=== PATIENT | female | born 1985 | race Caucasian/White ===

== ENCOUNTER 2022-04-22 13:25 | Emergency (ER) | payer OTHER, SELFPAY ==
--- NOTE | ~2022-04-22 | XR_ITS ---
EXAMINATION: XR CHEST CLINICAL INFORMATION: Shortness of breath COMPARISON: None TECHNIQUE: Frontal view of the chest was obtained. FINDINGS: No significant abnormality is noted involving the heart, lungs, mediastinum, bony thorax or soft tissues. Surgical clips in the left lower neck. XR/XR chest 1V IMPRESSION: No evidence for acute disease in the chest.
--- NOTE | ~2022-04-22 | CT_ITS ---
EXAMINATION: CT HEAD WITHOUT CONTRAST CLINICAL INFORMATION: Headache and dizziness COMPARISON: None TECHNIQUE: Imaging was performed from the skull base to vertex without intravenous administration of contrast. This CT examination was performed using dose optimization techniques as appropriate, variously including the following: *Automated exposure control *Adjustment of mA and/or kV according to patient size (this includes techniques or standardized protocols for targeted exams where dose is matched to indication/reason for exam; i.e. extremities or head) *Use of iterative reconstruction technique Total exam dose length product: 709 mGy-cm FINDINGS: No intra or extra-axial fluid collection, hemorrhage, or mass. No ventriculomegaly. No midline shift or herniation. Basal cisterns are patent. Chicas-white matter differentiation is maintained. No territorial encephalomalacia. No significant volume loss. There is no abnormal attenuation within the brain parenchyma. No calvarial fracture or soft tissue abnormality. Small subcentimeter left frontal dural calcification versus osteoma projecting from the inner table skull noted incidentally. Small retention cysts in the left frontal sinus and right maxillary antrum. Mastoid air cells normally aerated. CT/CT head/brain wo IV con IMPRESSION: No acute intracranial pathology.
--- NOTE | 2022-04-22 15:21 | ED_ITS ---
HPI - General Adult General Chief complaint: General Medical <WEN Salcido - Last Filed: 04/22/22 15:26> Stated complaint: Migraine/Vomiting/Back pain <WEN Salcido - Last Filed: 04/22/22 15:26> Time Seen by Provider: 04/22/22 20:47 <WEN Salcido - Last Filed: 04/22/22 15:26> Source: patient <Jesse Marrufo MD - Last Filed: 04/23/22 00:00> Mode of arrival: ambulatory <Jesse Marrufo MD - Last Filed: 04/23/22 00:00> Limitations: no limitations <Jesse Marrufo MD - Last Filed: 04/23/22 00:00> History of Present Illness HPI narrative: Patient history of migraine headaches ran out of her Topamax and Imitrex been having headache for last 2-3 days also since yesterday patient having nasal congestion body aches burning dry cough. No other family member sick patient has not received the flu shot this year <Jesse Marrufo MD - Last Filed: 04/23/22 00:00> Related Data Home medications: Previous Rx's Medication Instructions Recorded benzonatate 200 mg capsule 200 mg PO TID PRN cough #30 caps 04/22/22 oylmwdudgh-bcrafsjjywpnh-sgardoju 1 cap PO Q6H PRN headache #20 caps 04/22/22 50 mg-300 mg-40 mg capsule (Fioricet) ibuprofen 600 mg tablet 600 mg PO Q6H PRN fever or pain 04/22/22 #30 tabs oseltamivir 75 mg capsule (Tamiflu) 75 mg PO BID 5 days #10 caps 04/22/22 sumatriptan succinate 50 mg tablet 50 mg PO Q2H PRN migraine headache 04/22/22 (Imitrex) #10 tabs <WEN Salcido - Last Filed: 04/22/22 15:26> Allergies/adverse reactions: Allergies Allergy/AdvReac Type Severity Reaction Status Date / Time sulfamethoxazole Allergy Unknown UNKNOWN Verified 04/22/22 15:27 [From Bactrim] trimethoprim [From Bactrim] Allergy Unknown UNKNOWN Verified 04/22/22 15:27 <WEN Salcido - Last Filed: 04/22/22 15:26> Review of Systems Review of Systems: Yes all other systems are reviewed and are negative <Jesse Marrufo MD - Last Filed: 04/23/22 00:00> [facility] Social History Social History: Social History Advance Directives: No Advance Directives Information Provided: No <WEN Salcido - Last Filed: 04/22/22 15:26> Physical Exam ED Vital Signs: Vital Signs - 24 hr 04/22/22 15:22 04/22/22 21:11 Temperature 98.8 F 98.6 F Pulse Rate 100 98 Respiratory Rate 20 20 Blood Pressure 112/88 115/78 Pulse Oximetry 96 100 Oxygen Delivery Method Room Air Room Air BMI result Body Mass Index 27.8 <WEN Salcido - Last Filed: 04/22/22 15:26> Vital Signs - 24 hr 04/22/22 15:22 04/22/22 21:11 Temperature 98.8 F 98.6 F Pulse Rate 100 98 Respiratory Rate 20 20 Blood Pressure 112/88 115/78 Pulse Oximetry 96 100 Oxygen Delivery Method Room Air Room Air BMI result Body Mass Index 27.8 <Jesse Marrufo MD - Last Filed: 04/23/22 00:00> Appearance: Alert. Oriented X3. No acute distress. Eyes: No pallor or icterus ENT: Pharynx normal. Oral Mucosa moist clear rhinorrhea Neck: Normal inspection. Neck supple. CVS: Normal heart rate and rhythm. Pulses normal. Respiratory: No respiratory distress. Equal air entry bilateral, no wheezing/rales/rhonchi Abdomen: Soft and nontender. Bowel sounds are present, Skin: Skin warm and dry. Normal skin color. Normal skin turgor. Extremities: No lower extremity edema. No calf tenderness Neuro: Oriented X 3. No motor deficit. <Jesse Marrufo MD - Last Filed: 04/23/22 00:00> Course Course Course Narrative: RME: [birth year][age] year old female hx asthma, migranes, throid issues presents w/ migranes, dizziness, cough, fatigue, malise, chest pain and shortness of breath X2 days. Went to yesterday yesterday had a CT of head done and PCR test. Patient doesn't know results of tests left ama. Was covid + 2 weeks ago. PE benign. 97% on RA w/ work of breathing Plan- labs, imaging <WEN Salcido - Last Filed: 04/22/22 15:26> Medications Administered Discontinued Medications Generic Name Dose Route Start Last Admin Trade Name Freq PRN Reason Stop Dose Admin Acetaminophen/Butalbital/Caffeine 1 tab 04/22/22 21:00 04/22/22 21:59 Butalb/Acetamin/Caff 50/325/40 Tablet PO 04/22/22 21:01 1 tab ONCE ONE Administration Guaifenesin/Codeine Phosphate 10 ml 04/22/22 21:00 04/22/22 21:57 Guaifen/Codeine Sf 200/20/10ml 10 Ml Liquid PO 04/22/22 21:01 10 ml ONCE ONE Administration Ondansetron HCl 4 mg 04/22/22 21:00 04/22/22 21:59 Ondansetron Odt 4 Mg Tab.Rapdis TRANSLINGU 04/22/22 21:01 4 mg ONCE ONE Administration Oseltamivir Phosphate 75 mg 04/22/22 21:00 04/22/22 21:58 Oseltamivir Phosphate 75 Mg Capsule PO 04/22/22 21:01 75 mg ONCE ONE Administration Sumatriptan Succinate 6 mg 04/22/22 21:00 04/22/22 22:00 Sumatriptan Succinate 6 Mg/0.5 Ml Vial SUBCUT 04/22/22 21:01 6 mg ONCE ONE Administration <WNE Salcido - Last Filed: 04/22/22 15:26> Medications Administered Discontinued Medications Generic Name Dose Route Start Last Admin Trade Name Freq PRN Reason Stop Dose Admin Acetaminophen/Butalbital/Caffeine 1 tab 04/22/22 21:00 04/22/22 21:59 Butalb/Acetamin/Caff 50/325/40 Tablet PO 04/22/22 21:01 1 tab ONCE ONE Administration Guaifenesin/Codeine Phosphate 10 ml 04/22/22 21:00 04/22/22 21:57 Guaifen/Codeine Sf 200/20/10ml 10 Ml Liquid PO 04/22/22 21:01 10 ml ONCE ONE Administration Ondansetron HCl 4 mg 04/22/22 21:00 04/22/22 21:59 Ondansetron Odt 4 Mg Tab.Rapdis TRANSLINGU 04/22/22 21:01 4 mg ONCE ONE Administration Oseltamivir Phosphate 75 mg 04/22/22 21:00 04/22/22 21:58 Oseltamivir Phosphate 75 Mg Capsule PO 04/22/22 21:01 75 mg ONCE ONE Administration Sumatriptan Succinate 6 mg 04/22/22 21:00 04/22/22 22:00 Sumatriptan Succinate 6 Mg/0.5 Ml Vial SUBCUT 04/22/22 21:01 6 mg ONCE ONE Administration <Jesse Marrufo MD - Last Filed: 04/23/22 00:00> Medical Decision Making Medical Decision Making [facility] Narrative: Patient with influenza a, migraine headache workup is negative FRANCESCA in the triage ordered the CT scan of the head which was negative patient already had another CT scan done at [facility] last night also <Jesse Marrufo MD - Last Filed: 04/23/22 00:00> Lab Data [facility] Lab Attestation statement: I reviewed the patient's lab results. <Jesse Marrufo MD - Last Filed: 04/23/22 00:00> Result Diagrams: : 04/22/22 16:42 04/22/22 16:42 <WEN Salcido - Last Filed: 04/22/22 15:26> Labs: Lab Results 04/22/22 04/22/22 04/22/22 Range/Units 16:42 16:42 16:42 WBC 5.4 (4.8-10.8) X10*3/uL RBC 4.31 (4.20-5.50) X10*6/uL Hgb 12.1 (12.0-16.0) g/dl Hct 36.7 L (37.0-47.0) % MCV 85.2 (80.0-98.0) fL MCH 28.1 (27.0-33.0) pg MCHC 33.0 (31.0-35.0) g/dl RDW 13.2 (11.0-16.0) % Plt Count 182 (160-400) X10*3/uL MPV 11.5 (9.4-12.3) fL Immature Gran % (Auto) 0.4 (0.0-0.4) % Neut % (Auto) 81.0 H (45-73) % Lymph % (Auto) 7.4 L (20-40) % Guthrie % (Auto) 10.4 (2-11) % Eos % (Auto) 0.4 (0-4) % Baso % (Auto) 0.4 (0-2) % Lymph # (Auto) 0.4 L (1.2-4.9) X10*3/uL Guthrie # (Auto) 0.6 (0.1-1.2) X10*3/uL Eos # (Auto) 0.0 (0.0-0.4) X10*3/uL Baso # (Auto) 0.0 (0.0-0.2) X10*3/uL Abs Immat Gran (auto) 0.02 (0.00-0.03) X10*3/uL Absolute Neuts (auto) 4.4 (2.0-8.3) x10*3/uL Absolute Nucleated RBC 0.000 (0.0-0.012) X10*3/uL Nucleated RBC % (auto) 0.0 (0.0-0.2) /100WBC D-Dimer High Sensitivty NG/ML Sodium 137 (135-145) mmol/L Potassium 3.8 (3.3-5.1) mmol/L Chloride 108 (96-108) mmol/L Carbon Dioxide 22 (22-29) mmol/L Anion Gap 11 L (12-20) BUN 6 L (9-16) mg/dL Creatinine 0.70 (0.5-1.4) mg/dL Estim Creat Clear Calc 110.2 Estimated GFR > 60 Random Glucose 96 (60-115) mg/dL Calcium 8.8 (8.4-10.2) mg/dL Magnesium 1.8 (1.6-2.6) mg/dL Total Bilirubin 0.4 (0.0-1.0) mg/dL AST 17 (5-31) U/L ALT 9 (0-31) U/L Alkaline Phosphatase 62 (39-117) U/L Troponin I High Sens (<3.5-17.0) ng/L Total Protein 6.8 (6.5-8.0) g/dL Albumin 4.3 (3.5-5.0) g/dL Influenza Type A (PCR) POSITIVE A (Negative) Influenza Type B (PCR) NEGATIVE (Negative) RSV RNA Qual (PCR) NEGATIVE (Negative) SARS-CoV-2 RNA (RT-PCR) NEGATIVE (Negative) 04/22/22 04/22/22 Range/Units 16:42 16:42 WBC (4.8-10.8) X10*3/uL RBC (4.20-5.50) X10*6/uL Hgb (12.0-16.0) g/dl Hct (37.0-47.0) % MCV (80.0-98.0) fL MCH (27.0-33.0) pg MCHC (31.0-35.0) g/dl RDW (11.0-16.0) % Plt Count (160-400) X10*3/uL MPV (9.4-12.3) fL Immature Gran % (Auto) (0.0-0.4) % Neut % (Auto) (45-73) % Lymph % (Auto) (20-40) % Guthrie % (Auto) (2-11) % Eos % (Auto) (0-4) % Baso % (Auto) (0-2) % Lymph # (Auto) (1.2-4.9) X10*3/uL Guthrie # (Auto) (0.1-1.2) X10*3/uL Eos # (Auto) (0.0-0.4) X10*3/uL Baso # (Auto) (0.0-0.2) X10*3/uL Abs Immat Gran (auto) (0.00-0.03) X10*3/uL Absolute Neuts (auto) (2.0-8.3) x10*3/uL Absolute Nucleated RBC (0.0-0.012) X10*3/uL Nucleated RBC % (auto) (0.0-0.2) /100WBC D-Dimer High Sensitivty < 150 NG/ML Sodium (135-145) mmol/L Potassium (3.3-5.1) mmol/L Chloride (96-108) mmol/L Carbon Dioxide (22-29) mmol/L Anion Gap (12-20) BUN (9-16) mg/dL Creatinine (0.5-1.4) mg/dL Estim Creat Clear Calc Estimated GFR Random Glucose (60-115) mg/dL Calcium (8.4-10.2) mg/dL Magnesium (1.6-2.6) mg/dL Total Bilirubin (0.0-1.0) mg/dL AST (5-31) U/L ALT (0-31) U/L Alkaline Phosphatase (39-117) U/L Troponin I High Sens 3.8 (<3.5-17.0) ng/L Total Protein (6.5-8.0) g/dL Albumin (3.5-5.0) g/dL Influenza Type A (PCR) (Negative) Influenza Type B (PCR) (Negative) RSV RNA Qual (PCR) (Negative) SARS-CoV-2 RNA (RT-PCR) (Negative) <WEN Salcido - Last Filed: 04/22/22 15:26> Lab Results 04/22/22 04/22/22 04/22/22 Range/Units 16:42 16:42 16:42 WBC 5.4 (4.8-10.8) X10*3/uL RBC 4.31 (4.20-5.50) X10*6/uL Hgb 12.1 (12.0-16.0) g/dl Hct 36.7 L (37.0-47.0) % MCV 85.2 (80.0-98.0) fL MCH 28.1 (27.0-33.0) pg MCHC 33.0 (31.0-35.0) g/dl RDW 13.2 (11.0-16.0) % Plt Count 182 (160-400) X10*3/uL MPV 11.5 (9.4-12.3) fL Immature Gran % (Auto) 0.4 (0.0-0.4) % Neut % (Auto) 81.0 H (45-73) % Lymph % (Auto) 7.4 L (20-40) % Guthrie % (Auto) 10.4 (2-11) % Eos % (Auto) 0.4 (0-4) % Baso % (Auto) 0.4 (0-2) % Lymph # (Auto) 0.4 L (1.2-4.9) X10*3/uL Guthrie # (Auto) 0.6 (0.1-1.2) X10*3/uL Eos # (Auto) 0.0 (0.0-0.4) X10*3/uL Baso # (Auto) 0.0 (0.0-0.2) X10*3/uL Abs Immat Gran (auto) 0.02 (0.00-0.03) X10*3/uL Absolute Neuts (auto) 4.4 (2.0-8.3) x10*3/uL Absolute Nucleated RBC 0.000 (0.0-0.012) X10*3/uL Nucleated RBC % (auto) 0.0 (0.0-0.2) /100WBC D-Dimer High Sensitivty NG/ML Sodium 137 (135-145) mmol/L Potassium 3.8 (3.3-5.1) mmol/L Chloride 108 (96-108) mmol/L Carbon Dioxide 22 (22-29) mmol/L Anion Gap 11 L (12-20) BUN 6 L (9-16) mg/dL Creatinine 0.70 (0.5-1.4) mg/dL Estim Creat Clear Calc 110.2 Estimated GFR > 60 Random Glucose 96 (60-115) mg/dL Calcium 8.8 (8.4-10.2) mg/dL Magnesium 1.8 (1.6-2.6) mg/dL Total Bilirubin 0.4 (0.0-1.0) mg/dL AST 17 (5-31) U/L ALT 9 (0-31) U/L Alkaline Phosphatase 62 (39-117) U/L Troponin I High Sens (<3.5-17.0) ng/L Total Protein 6.8 (6.5-8.0) g/dL Albumin 4.3 (3.5-5.0) g/dL Influenza Type A (PCR) POSITIVE A (Negative) Influenza Type B (PCR) NEGATIVE (Negative) RSV RNA Qual (PCR) NEGATIVE (Negative) SARS-CoV-2 RNA (RT-PCR) NEGATIVE (Negative) 04/22/22 04/22/22 Range/Units 16:42 16:42 WBC (4.8-10.8) X10*3/uL RBC (4.20-5.50) X10*6/uL Hgb (12.0-16.0) g/dl Hct (37.0-47.0) % MCV (80.0-98.0) fL MCH (27.0-33.0) pg MCHC (31.0-35.0) g/dl RDW (11.0-16.0) % Plt Count (160-400) X10*3/uL MPV (9.4-12.3) fL Immature Gran % (Auto) (0.0-0.4) % Neut % (Auto) (45-73) % Lymph % (Auto) (20-40) % Guthrie % (Auto) (2-11) % Eos % (Auto) (0-4) % Baso % (Auto) (0-2) % Lymph # (Auto) (1.2-4.9) X10*3/uL Guthrie # (Auto) (0.1-1.2) X10*3/uL Eos # (Auto) (0.0-0.4) X10*3/uL Baso # (Auto) (0.0-0.2) X10*3/uL Abs Immat Gran (auto) (0.00-0.03) X10*3/uL Absolute Neuts (auto) (2.0-8.3) x10*3/uL Absolute Nucleated RBC (0.0-0.012) X10*3/uL Nucleated RBC % (auto) (0.0-0.2) /100WBC D-Dimer High Sensitivty < 150 NG/ML Sodium (135-145) mmol/L Potassium (3.3-5.1) mmol/L Chloride (96-108) mmol/L Carbon Dioxide (22-29) mmol/L Anion Gap (12-20) BUN (9-16) mg/dL Creatinine (0.5-1.4) mg/dL Estim Creat Clear Calc Estimated GFR Random Glucose (60-115) mg/dL Calcium (8.4-10.2) mg/dL Magnesium (1.6-2.6) mg/dL Total Bilirubin (0.0-1.0) mg/dL AST (5-31) U/L ALT (0-31) U/L Alkaline Phosphatase (39-117) U/L Troponin I High Sens 3.8 (<3.5-17.0) ng/L Total Protein (6.5-8.0) g/dL Albumin (3.5-5.0) g/dL Influenza Type A (PCR) (Negative) Influenza Type B (PCR) (Negative) RSV RNA Qual (PCR) (Negative) SARS-CoV-2 RNA (RT-PCR) (Negative) <Jesse Marrufo MD - Last Filed: 04/23/22 00:00> Discharge Plan Discharge Clinical Impression: Influenza A, Migraine <WEN Salcido - Last Filed: 04/22/22 15:26> Patient Disposition: Home, Self-Care <WEN Salcido - Last Filed: 04/22/22 15:26> Instructions: Migraine Headache (ED), Influenza (ED) <WEN Salcido - Last Filed: 04/22/22 15:26> Additional Instructions: Rest at home, drink plenty of fluids Social distancing as advised Cough drops as prescribed Take medication for migraine as prescribed <WEN Salcido - Last Filed: 04/22/22 15:26> Prescriptions: New oseltamivir [Tamiflu] 75 mg capsule 75 mg PO BID 5 Days Qty: 10 0RF sumatriptan succinate [Imitrex] 50 mg tablet 50 mg PO Q2H PRN (Reason: migraine headache) Qty: 10 0RF Rx Instructions: do not exceed 2 doses per 24 hrs [id number] [Fioricet] 50-300-40 mg capsule 1 cap PO Q6H PRN (Reason: headache) Qty: 20 0RF benzonatate 200 mg capsule 200 mg PO TID PRN (Reason: cough) Qty: 30 0RF ibuprofen 600 mg tablet 600 mg PO Q6H PRN (Reason: fever or pain) Qty: 30 0RF <WEN Salcido - Last Filed: 04/22/22 15:26> Stand Alone Forms: Work/School Release <WEN Salcido - Last Filed: 04/22/22 15:26> Interventions: ED Discharge Assessment Last Done: 04/22/22 23:09 <WEN Salcido - Last Filed: 04/22/22 15:26> Discharge Date/Time: 04/22/22 23:09 <WEN Salcido - Last Filed: 04/22/22 15:26>
[2022-04-22 15:22] VITALS: BP 112/88; PULSE 100; RESP 20; TEMP 37.1; O2SAT 96; BMI 27.8
[2022-04-22 16:48] LABS: MANUAL DIFF FLAG NO
[2022-04-22 16:55] LABS: Basophils Percent Auto 0.4 % (0-2); Eosinophils Percent Auto 0.4 % (0-4); Hematocrit 36.7 % (37.0-47.0); Hemoglobin 12.1 g/dl (12.0-16.0); Imm Gran Abs Auto 0.02 X10*3/uL (0.00-0.03); Imm Gran Pct Auto 0.4 % (0.0-0.4); Lymphocytes Absolute Auto 0.4 X10*3/uL (1.2-4.9); Lymphocytes Percent Auto 7.4 % (20-40); Mean Corpuscular Hemoglobin 28.1 pg (27.0-33.0); Mean Corpuscular Volume 85.2 fL (80.0-98.0); Mean Platelet Volume 11.5 fL (9.4-12.3); Monocytes Absolute Auto 0.6 X10*3/uL (0.1-1.2); Monocytes Percent Auto 10.4 % (2-11); Neutrophils Absolute Auto 4.4 x10*3/uL (2.0-8.3); Platelet Count 182 X10*3/uL (160-400); Red Blood Count 4.31 X10*6/uL (4.20-5.50); Red Cell Distribution Width 13.2 % (11.0-16.0); White Blood Count 5.4 X10*3/uL (4.8-10.8)
[2022-04-22 17:00] LABS: D Dimer High Sensitivity < 150 NG/ML
[2022-04-22 17:11] LABS: Alanine Aminotransferase 9 U/L (0-31); Albumin Level 4.3 g/dL (3.5-5.0); Alkaline Phosphatase 62 U/L (39-117); Anion Gap 11 (12-20); Aspartate Amino Transferase 17 U/L (5-31); Bilirubin Total 0.4 mg/dL (0.0-1.0); Blood Urea Nitrogen 6 mg/dL (9-16); Calcium 8.8 mg/dL (8.4-10.2); Carbon Dioxide 22 mmol/L (22-29); Chloride 108 mmol/L (96-108); Creatinine Clr Calc Pharmacy 110.2; Estimated Glomerular Filt Rate > 60; Glucose Random 96 mg/dL (60-115); Magnesium 1.8 mg/dL (1.6-2.6); Potassium 3.8 mmol/L (3.3-5.1); Sodium 137 mmol/L (135-145); Total Protein 6.8 g/dL (6.5-8.0)
[2022-04-22 17:18] LABS: Troponin-I High Sensitivity 3.8 ng/L (<3.5-17.0)
[2022-04-22 17:32] LABS: Influenza A PCR POSITIVE (Negative); Influenza B PCR NEGATIVE (Negative); Resp Syncy Virus RNA Qual PCR NEGATIVE (Negative); SARS COV2 PCR INHOUSE NEGATIVE (Negative)
[2022-04-22 21:11] VITALS: BP 115/78; PULSE 98; RESP 20; TEMP 37; O2SAT 100
[2022-04-22] MEDS: guaiFEN/Codeine SF 200/20/10ML 10 ML LIQUID PO (21:57)
[2022-04-22] MEDS: Oseltamivir Phosphate 75 MG CAPSULE PO (21:58)
[2022-04-22] MEDS: Butalb/Acetamin/Caff 50/325/40 TABLET 1 TAB PO (21:59)
[2022-04-22] MEDS: Ondansetron ODT 4 MG TAB.RAPDIS TRANSLINGU (21:59)
[2022-04-22] MEDS: SUMAtriptan succinate 6 MG/0.5 ML VIAL SUBCUT (22:00)
== END 2022-04-22 23:09 | disposition home or self-care (01) ==
PROVIDERS: Physician Assistant; Emergency Provider Internal Medicine
DX: J10.1 Influenza due to other identified influenza virus with other respiratory manifestations (principal); G43.909 Migraine, unspecified, not intractable, without status migrainosus; R05.9 Cough, unspecified; R42 Dizziness and giddiness; M54.50 Low back pain, unspecified; Z20.822 Contact with and (suspected) exposure to COVID-19; Z79.899 Other long term (current) drug therapy
CPT/HCPCS: 0241U; 36415; 70450; 71045; 80053; 83735; 84484; 85025; 85379; 96372; 99283; 99284; J3030

== ENCOUNTER 2023-06-03 10:23 | Emergency (ER) | payer OTHER, SELFPAY ==
--- NOTE | ~2023-06-03 | CT_ITS ---
EXAMINATION: CT HEAD WITHOUT CONTRAST CLINICAL INFORMATION: Sharp head pains. COMPARISON: Head CT dated 04/22/2022. TECHNIQUE: Contiguous axial imaging was performed from the skullbase to vertex without intravenous administration of contrast. This CT examination was performed using dose optimization techniques as appropriate, variously including the following: *Automated exposure control *Adjustment of mA and/or kV according to patient size (this includes techniques or standardized protocols for targeted exams where dose is matched to indication/reason for exam; i.e. extremities or head) *Use of iterative reconstruction technique DLP: 657 mGy-cm. FINDINGS: There is no evidence of acute intracranial hemorrhage or territorial infarction. No abnormal mass effect or midline shift is seen. No extra-axial fluid collections are identified. There is what is suspected to represent a stable, small 1 cm osteoma along the inner cortical table of the anterior left frontal bone. The ventricles are normal in size. There is no abnormal attenuation within the brain parenchyma. The osseous structures and soft tissues are normal. The mastoid air cells and visualized portions of the paranasal sinuses are well aerated. CT/CT head/brain wo IV con IMPRESSION: No acute intracranial pathology. 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
[2023-06-03 11:24] VITALS: BP 135/77; PULSE 62; RESP 18; TEMP 36.4; O2SAT 100; BMI 32.2
--- NOTE | 2023-06-03 11:32 | ED.HA ---
HPI - Headache General Chief Complaint: Headache Stated Complaint: Headaches, abnormal CT scan - sent by PCP Time Seen by Provider: 06/03/23 16:38 Source: patient Mode of arrival: ambulatory Limitations: no limitations History of Present Illness HPI Narrative: 37 year old female presents to the ED today for evaluation of headaches, nausea and vomiting x2 weeks. Headaches located to left side of head. Sharp and stabbing in character. Endorses staticy vision. These episodes last longer than 15 minutes. Denies recent trauma or injury to the head. 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 Is supposed to schedule MRI soon. Reports calling her PCP this morning who advised her to come in for evaluation. States she used to follow with a neurologist and was on topiramate, Fioricet, sumatriptan however she stopped following up and has not seen a neurologist since. States her migraines have been under control until the last few weeks. Has not been taking anything for pain. Denies fever, chills, neck pain, difficulty ambulating, ear pain, eye pain, photophobia, chest pain, shortness of breath. Related Data Previous Rx's Medication Instructions Recorded benzonatate 200 mg capsule 200 mg PO TID PRN cough #30 caps 04/22/22 mftgaankjt-yhhlvgqnpkbje-ifgtolxi 1 cap PO Q6H PRN headache #20 caps 04/22/22 50 mg-300 mg-40 mg capsule (Fioricet) ibuprofen 600 mg tablet 600 mg PO Q6H PRN fever or pain 04/22/22 #30 tabs oseltamivir 75 mg capsule (Tamiflu) 75 mg PO BID 5 days #10 caps 04/22/22 sumatriptan succinate 50 mg tablet 50 mg PO Q2H PRN migraine headache 04/22/22 (Imitrex) #10 tabs ifzenqczkf-pysbqdxnmtbse-nhqimnmy 1 cap PO Q8H PRN pain (scale score 06/03/23 50 mg-300 mg-40 mg capsule 4-6) #10 caps (Fioricet) ondansetron 4 mg disintegrating 4 mg PO DAILY PRN nausea and 06/03/23 tablet vomiting 5 days #10 tabs Allergies Allergy/AdvReac Type Severity Reaction Status Date / Time sulfamethoxazole Allergy Unknown UNKNOWN Verified 06/03/23 11:23 [From Bactrim] trimethoprim [From Bactrim] Allergy Unknown UNKNOWN Verified 06/03/23 11:23 Review of Systems Review of Systems: Constitutional: No fever, chills, fatigue, night sweats, weight changes ENT/Mouth: No ear pain, hearing loss, nasal congestion, sinus pain, rhinorrhea, sore throat Eyes: No eye pain, swelling, redness, +vision changes, No discharge Cardio: No chest pain, palpitations, SAWYER, orthopnea, peripheral edema Pulm: No SOB, cough, sputum, wheezing, dyspnea, hemoptysis GI: +nausea, +vomiting, No hematemesis, abdominal pain, diarrhea, constipation, hematochezia, melena : No irregular bleeding, dysuria, frequency, urgency, hesitancy, hematuria, flank pain, urinary flow changes, urinary incontinence or retention MSK: No back pain, neck pain, joint pain, myalgias Skin: No lesions, rashes Neuro: No weakness, numbness, paresthesias, LOC, dizziness, +headache All other systems reviewed and are negative. [facility] Past Medical History Attestation statement: The following information was validated with the patient. Source: old records reviewed and nursing notes reviewed Social History Social History Advance Directives: No Advance Directives Information Provided: No Physical Exam Vital Signs: Vital Signs: Last Vital Signs Temp 97.6 F 06/03/23 11:24 Pulse 62 06/03/23 11:24 Resp 18 06/03/23 11:24 BP 135/77 06/03/23 11:24 Pulse Ox 100 06/03/23 11:24 O2 Del Method Room Air 06/03/23 11:24 BMI result Body Mass Index 32.2 Vital signs stable Const: General: cooperative, healthy appearing, comfortable, no acute distress, alert and awake Orientation/consciousness: patient oriented x3 Limitations: no limitations HEENT: Head: Yes normal to inspection, Yes normocephalic and Yes atraumatic Eyes: General: appearance normal, both eyes and all related structures Conjunctivae: conjunctivae normal Sclerae: sclerae normal Pupils: Equal, round and reactive pupils present EOM: EOMs intact bilaterally Neck: Neck: Yes normal visual inspection, Yes full ROM, Yes no lymphadenopathy and Yes no meningeal signs Resp: Effort & Inspection: normal respiratory effort Auscultation: clear to auscultation bilaterally Cardio: Rate: regular rate Rhythm: regular rhythm Skin: General skin exam: no rashes or lesions noted Neuro: Other: Strength 5/5 intact throughout.?Sensation intact to light touch.? Neurovascular intact. General: patient oriented x3, gait normal, moves all extremities, no meningeal signs and no focal motor deficits Cranial nerves: Yes Equal, round and reactive pupils present and Yes Nystagmus not present Cognition (Neuro): normal cognition Gait exam (Neuro): Normal gait present Motor exam (neuro): 5/5 motor strength present throughout and Pronator motor function not present Coordination: fpymsw-sk-pskw test normal, leuz-yw-qtmk test normal and Normal rapid alternating movements of the distal upper extremity present (Neuro) Pupils: Normal pupillary reactivity/response: bilateral Extrem: General: Yes normal to inspection and Yes full ROM Course Course Course Narrative: 1635-- CBC without leukocytosis or left shift. No anemia. H&H stable. Chemistry without acute electrolyte abnormality requiring intervention. Sed rate WNL. Slight elevation in CRP to 0.70. CT is negative for acute intracranial pathology. 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 I have discussed all of these results with patient. She is aware of this osteoma and is currently following with PCP for this. I suspect patient is having complex migraines. Will send Fioricet to pharmacy as she states this has worked for her in the past. Will send Zofran to pharmacy for nausea. Advised her to call her PCP tomorrow and schedule follow-up MRI. Advised her to reach out to neurologist for appointment. Patient has remained stable throughout ED visit today. Discussed worrisome signs and symptoms of when to return to the ED. All questions answered at this time. Patient is agreeable with disposition and stable for discharge. Medical Decision Making Medical Decision Making MDM Narrative: 37 year old female presents to the ED today for evaluation of headaches, nausea and vomiting x2 weeks. Vital signs stable. Normotensive. Afebrile. Nontoxic appearing and in no acute distress. Exam nonfocal. Cerebellum intact. Neurovascularly intact. Ambulating with steady gait. NIH stroke scale 0. Concern for headache, migraine, complex migraine, cluster headache, dehydration, anemia, electrolyte abnormality. Unlikely meningitis, ICH, intracranial mass, CVA/TIA, cerebellar stroke, dissection. Plan for labs, CT head/brain, re-evaluation. Differential Diagnosis Differential Diagnoses: The differential diagnosis associated with the presentation includes Admission/Observation Not indicated Lab Data MDM Lab Attestation statement: I reviewed the patient's lab results. as above. 06/03/23 12:22 06/03/23 12:22 Labs: Lab Results 06/03/23 Range/Units 12:22 WBC 6.3 (4.8-10.8) X10*3/uL RBC 5.04 (4.20-5.50) X10*6/uL Hgb 14.2 (12.0-16.0) g/dl Hct 42.6 (37.0-47.0) % MCV 84.5 (80.0-98.0) fL MCH 28.2 (27.0-33.0) pg MCHC 33.3 (31.0-35.0) g/dl RDW 13.2 (11.0-16.0) % Plt Count 321 D (160-400) X10*3/uL MPV 10.0 (9.4-12.3) fL Immature Gran % (Auto) 0.3 (0.0-0.4) % Neut % (Auto) 54.8 (45-73) % Lymph % (Auto) 34.1 (20-40) % [place] % (Auto) 8.3 (2-11) % Eos % (Auto) 2.2 (0-4) % Baso % (Auto) 0.3 (0-2) % Lymph # (Auto) 2.1 (1.2-4.9) X10*3/uL [place] # (Auto) 0.5 (0.1-1.2) X10*3/uL Eos # (Auto) 0.1 (0.0-0.4) X10*3/uL Baso # (Auto) 0.0 (0.0-0.2) X10*3/uL Abs Immat Gran (auto) 0.02 (0.00-0.03) X10*3/uL Absolute Neuts (auto) 3.4 (2.0-8.3) x10*3/uL Absolute Nucleated RBC 0.000 (0.0-0.012) X10*3/uL Nucleated RBC % (auto) 0.0 (0.0-0.2) /100WBC ESR 9 (0-20) MM/HR Sodium 140 (135-145) mmol/L Potassium 3.8 (3.3-5.1) mmol/L Chloride 107 (96-108) mmol/L Carbon Dioxide 26 (22-29) mmol/L Anion Gap 11 L (12-20) BUN 11 (9-16) mg/dL Creatinine 0.72 (0.5-1.4) mg/dL Estim Creat Clear Calc 114.0 Estimated GFR > 60 Random Glucose 86 (60-115) mg/dL Calcium 9.2 (8.4-10.2) mg/dL Magnesium 2.0 (1.6-2.6) mg/dL C-Reactive Protein 0.70 H (< or = 0.50) mg/dL Independent Interpretation I performed an independent interpretation of an: CT Scan Interpretation: I have personally reviewed CT scan and agree with radiologist's interpretation. Radiology Impression Discussion of test interpretation with radiology: I have reviewed the radiologist's reading. Radiologist Impression: CT head/brain wo IV con IMPRESSION: No acute intracranial pathology. 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 External Record Review External record reviewed: Inpatient record Prescription Management I considered prescription management with: Pain Medication Chronic Conditions Patient?s care impacted by: Other (Osteoma, migraines) Social Determinants Patient?s care significantly limited by Social Determinants of Health including: Other Social Determinant of Health Critical Care Time Critical Care Time Critical Care Time: No Discharge Plan Discharge Clinical Impression: Headache Patient Disposition: Home, Self-Care Instructions: Acute Headache (DC) Additional Instructions: Your CT scan today is reassuring. It shows a stable osteoma which you are aware of. There is no intracranial mass or bleed. Your lab work today is reassuring. You likely have a complex migraine. Fioricet has been sent to your pharmacy. Take this as needed for migraines. Refrain from taking this 3 days in a row as it may cause rebound headache. Zofran as an antiemetic that has been sent to your pharmacy. Take this as needed for nausea. Please follow-up with your primary care provider regarding neurologist referral and MRI order. If symptoms persist or worsen, please return to the ED. In the case of an emergency call 911. Prescriptions: New oscrhhqlic-myugnrebqzwpw-qtqc [Fioricet] 50-300-40 mg capsule 1 cap PO Q8H PRN (Reason: pain (scale score 4-6)) Qty: 10 0RF ondansetron 4 mg tablet,disintegrating 4 mg PO DAILY PRN (Reason: nausea and vomiting) 5 Days Qty: 10 0RF No Action oseltamivir [Tamiflu] 75 mg capsule 75 mg PO BID 5 Days Qty: 10 0RF sumatriptan succinate [Imitrex] 50 mg tablet 50 mg PO Q2H PRN (Reason: migraine headache) Qty: 10 0RF Rx Instructions: do not exceed 2 doses per 24 hrs rgnyqkbwml-efunmpvsvwmlm-zvys [Fioricet] 50-300-40 mg capsule 1 cap PO Q6H PRN (Reason: headache) Qty: 20 0RF benzonatate 200 mg capsule 200 mg PO TID PRN (Reason: cough) Qty: 30 0RF ibuprofen 600 mg tablet 600 mg PO Q6H PRN (Reason: fever or pain) Qty: 30 0RF Interventions: ED Discharge Assessment Last Done: 06/03/23 16:47 Discharge Date/Time: 06/03/23 16:47
[2023-06-03 12:27] LABS: MANUAL DIFF FLAG NO
[2023-06-03 12:29] LABS: Basophils Percent Auto 0.3 % (0-2); Eosinophils Absolute Auto 0.1 X10*3/uL (0.0-0.4); Eosinophils Percent Auto 2.2 % (0-4); Hematocrit 42.6 % (37.0-47.0); Hemoglobin 14.2 g/dl (12.0-16.0); Imm Gran Abs Auto 0.02 X10*3/uL (0.00-0.03); Imm Gran Pct Auto 0.3 % (0.0-0.4); Lymphocytes Absolute Auto 2.1 X10*3/uL (1.2-4.9); Lymphocytes Percent Auto 34.1 % (20-40); Mean Corpuscular HGB Conc 33.3 g/dl (31.0-35.0); Mean Corpuscular Hemoglobin 28.2 pg (27.0-33.0); Mean Corpuscular Volume 84.5 fL (80.0-98.0); Monocytes Absolute Auto 0.5 X10*3/uL (0.1-1.2); Monocytes Percent Auto 8.3 % (2-11); Neutrophils Absolute Auto 3.4 x10*3/uL (2.0-8.3); Neutrophils Percent Auto 54.8 % (45-73); Platelet Count 321 X10*3/uL (160-400); Red Blood Count 5.04 X10*6/uL (4.20-5.50); Red Cell Distribution Width 13.2 % (11.0-16.0); White Blood Count 6.3 X10*3/uL (4.8-10.8)
[2023-06-03 12:43] LABS: Anion Gap 11 (12-20); Blood Urea Nitrogen 11 mg/dL (9-16); Calcium 9.2 mg/dL (8.4-10.2); Carbon Dioxide 26 mmol/L (22-29); Chloride 107 mmol/L (96-108); Estimated Glomerular Filt Rate > 60; Glucose Random 86 mg/dL (60-115); Potassium 3.8 mmol/L (3.3-5.1); Sodium 140 mmol/L (135-145)
[2023-06-03 13:12] LABS: Erythrocyte Sedimentation Rate 9 MM/HR (0-20)
== END 2023-06-03 16:47 | disposition home or self-care (01) ==
PROVIDERS: Physician Assistant Medical; Emergency Provider Emergency Medicine
DX: R51.9 Headache, unspecified (principal); D16.9 Benign neoplasm of bone and articular cartilage, unspecified; R11.2 Nausea with vomiting, unspecified
CPT/HCPCS: 36415; 70450; 80048; 83735; 85025; 85652; 86140; 99282; 99284

== ENCOUNTER 2025-01-08 11:05 | Emergency (ER) | payer OTHER, SELFPAY ==
--- NOTE | ~2025-01-08 | CT_ITS ---
CLINICAL HISTORY: flank pain, concern for stone CT abdomen and pelvis without contrast Comparison: None available Findings: No nephrolithiasis or hydronephrosis. No bladder stone. No consolidation at the lung bases. Unremarkable gallbladder. 2.5 cm fluid attenuation lesion in the right adnexa could be a dominant follicle in the right ovary. The other solid organs are normal. Small hiatal hernia. No bowel wall thickening or dilation. A normal appendix is identified. Normal vasculature. No lymphadenopathy. No ascites. No acute fracture. Impression: No urinary tract stone, obstruction or other acute pathology. This document has been electronically signed by: Meagan Motley MD on 01/08/2025 14:54:58
[2025-01-08 11:33] VITALS: BP 187/111; PULSE 80; RESP 16; TEMP 36.8; O2SAT 100; BMI 28.3
--- NOTE | 2025-01-08 11:33 | ED_ITS ---
HPI - General Adult General Chief complaint: Abdominal Pain Stated complaint: lower abd/ back pain Time Seen by Provider: 01/08/25 12:43 Source: patient Mode of arrival: ambulatory Limitations: no limitations History of Present Illness ED Provider: DORYS ATKINSON PA-C HPI narrative: 39-year-old female presents to the ED today for evaluation of left flank pain and dysuria x7 days. 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 The provider there called in a course of Macrobid and Diflucan for treatment of suspected yeast infection and UTI. Reports taking both doses of Diflucan. She self discontinued Macrobid after a few days as she did not feel as though it was helping with her symptoms. Reports continued dysuria, left flank pain, and nausea without vomiting. Three days ago she reports noticing a small stone in the toilet bowl after urinating. LMP 2-3 weeks ago. She states she has not been sexually active for at least 6 months as her partner is currently incarcerated. Denies chance of . Trialing motrin at home without relief. Admits to consuming a lot of soda. Denies history of renal stones. Surgical history includes sectio.=n. Related Data Previous Rx's ?Medication ?Instructions ?Recorded benzonatate 200 mg capsule 200 mg PO TID PRN cough #30 caps 04/22/22 rrmrnnojxw-dteehtijdpnng-kapqsfbh 1 cap PO Q6H PRN hea dache #20 caps 04/22/22 50 mg-300 mg-40 mg capsule (Fioricet) ibuprofen 600 mg tablet 600 mg PO Q6H PRN fever or p ain 04/22/22 #30 tabs oseltamivir 75 mg capsule (Tamiflu) 75 mg PO BID 5 day s #10 caps 04/22/22 sumatriptan succinate 50 mg tablet 50 mg PO Q2H PRN mi graine headache 04/22/22 (Imitrex) #10 tabs jpyudogyeb-ujtqufpideuvn-kypxznlv 1 cap PO Q8H PRN elba n (scale score 06/03/23 50 mg-300 mg-40 mg capsule 4-6) #10 caps (Fioricet) ondansetron 4 mg disintegrating 4 mg PO DAILY PRN naus ea and 06/03/23 tablet vomiting 5 days #10 tabs naproxen 500 mg tablet 500 mg PO Q12H PRN pain (sca le 01/08/25 score 1-3) #20 tabs Allergies Allergy/AdvReac Type Severity Reaction Status Date / Time sulfamethoxazole (From Allergy Unknown UNKNOWN Verified 01/08/25 11:35 Bactrim) trimethoprim (From Bactrim) Allergy Unknown UNKNOWN Verified 01/08/25 11:35 Review of Systems 2 Review of Systems: Yes all other systems are reviewed and are negative [facility] Past Medical History Attestation statement: The following information was validated with the patient. Source: old records reviewed and nursing notes reviewed Social History Social History Smoked in Last 30 Days: No Use of substances other than those prescribed or required for medical reasons: No Advance Directives: No Advance Directives Information Provided: No Physical Exam ED Vital Signs: Vital Signs - 24 hr 01/08/25 11:33 01/08/25 16:23 01/08/25 17:28 Temperature 98.2 F 98.1 F 98.1 F Pulse Rate 80 62 62 Respiratory Rate 16 16 16 Blood Pressure 187/111 H 171/103 H 171/103 H Pulse Oximetry 100 98 98 Oxygen Delivery Method Room Air Room Air Room Air BMI result Body Mass Index 28.3 Hypertensive, vitals otherwise WNL General: Well appearing, in no acute distress. Skin: Warm, dry, intact. No rashes or lesions. Head: Normocephalic, atraumatic. EENT: Hearing is intact b/l. Conjunctiva clear. PERRLA. EOM intact. Moist mucous membranes.? Cardiac: Chest wall symmetric. RRR Lungs: Normal respiratory effort without accessory muscle use. CTA bilaterally Abdomen: Soft, non-tender, non-distended. No rebound tenderness or guarding. Positive BS x4. no cvat. Back: No midline spinous or paraspinal tenderness. No step off deformity. Ext: Upper and lower extremities atraumatic, without tenderness, deformity, swelling or erythema Neuro: AOx3. Normal speech. Ambulating with steady gait. Course Course Course Narrative: Rapid medical examination performed in triage by Amira Alford PA-C. Patient is a 39 year old assigned female at presenting to the emergency department with flank pain. Patient states that she recently passed a kidney stone. Detailed physical exam and review of systems are deferred to the keg filler. Labs and imaging ordered. Patient placed back in the waiting room pending room availability and results. Reevaluation(s) Reevaluation #1: CBC without leukocytosis or left shift. No anemia. H&H stable. Chemistry without acute electrolyte abnormality requiring intervention. No JOI. Liver function appears to be around patient's baseline. Beta quant undetectable, not . Urine showing small amount of blood and RBCs. Negative for infection. CT abdomen/pelvis without acute abnormality. > patient reports improvement in pain with toradol + IVF. tolerating PO. > I suspect that patient is either passing small stones that can not be picked up on CT or she has residual inflammation from recently passed stone. nonetheless, will discharge her home on NSAIDs and outpatient follow up. she is agreeable with this. > her blood pressure has been quite elevated during her visit today. Initially 187/111 now 171/103. She is asymptomatic. She tells me that she has a white coat syndrome, no official diagnosis of hypertension. She is not on any antihypertensives. I encouraged her to keep a log of her blood pressures at home and to follow up with PCP as she may need to be placed on a blood pressure medication if this continues to be elevated. Educated on signs and symptoms of elevated blood pressure/ when to return to the ED. > Discussed worrisome signs and symptoms and when to return to the ED. All questions answered at this time. Patient is agreeable with disposition and stable for discharge. Medications Administered Discontinued Medications Generic Name Dose Route Start Last Admin Trade Name Herminio PRN Reason Stop Dose Admin Sodium Chloride 1,000 mls @ 999 mls/hr 01/08/25 13:00 01/08/25 13:15 Ns IV 01/08/25 14:00 999 mls/hr .Q1H1M ZENA Administration Ketorolac Tromethamine 30 mg 01/08/25 12:55 01/08/25 13:15 Ketorolac Tromethamine 30 Mg/Ml Vial IVPUSH 01/08/25 12:56 30 mg ONCE ONE Administration Ondansetron HCl 4 mg 01/08/25 12:55 01/08/25 13:15 Ondansetron Hcl 4 Mg/2 Ml Vial IVPUSH 01/08/25 12:56 4 mg ONCE ONE Administration Medical Decision Making Medical Decision Making [facility] Narrative: 39-year-old female presents to the ED today for evaluation of left flank pain and dysuria x7 days. Patient is hypertensive, vitals are otherwise WNL. She is well-appearing and in no acute distress. Abdomen is soft, nondistended, nontender to palpation, rebound or guarding, no CVAT bilaterally. Differential diagnosis includes renal colic, nephrolithiasis, obstructive uropathy, UTI, IUP, menstruation, fibroids, AUB Plan for screening labs, UA, u preg, CT, pain control, IVF and re-evaluation. Toradol + IVF + zofran ordered. Differential Diagnosis Differential Diagnoses: The differential diagnosis associated with the presentation includes as above. Admission/Observation not indicated. Lab Data [facility] Lab Attestation statement: I reviewed the patient's lab results. as above. 01/08/25 12:00 01/08/25 12:00 Labs: Lab Results 01/08/25 01/08/25 Range/Units 12:00 15:52 WBC 6.1 (4.8-10.8) X10*3/uL RBC 4.67 (4.20-5.50) X10*6/uL Hgb 13.3 (12.0-16.0) g/dl Hct 39.0 (37.0-47.0) % MCV 83.5 (80.0-98.0) fL MCH 28.5 (27.0-33.0) pg MCHC 34.1 (31.0-35.0) g/dl RDW 13.1 (11.0-16.0) % Plt Count 319 (160-400) X10*3/uL MPV 10.1 (9.4-12.3) fL Immature Gran % (Auto) 0.2 (0.0-0.4) % Neut % (Auto) 47.9 (45-73) % Lymph % (Auto) 39.8 (20-40) % Mcleod % (Auto) 8.6 (2-11) % Eos % (Auto) 3.0 (0-4) % Baso % (Auto) 0.5 (0-2) % Lymph # (Auto) 2.4 (1.2-4.9) X10*3/uL Mcleod # (Auto) 0.5 (0.1-1.2) X10*3/uL Eos # (Auto) 0.2 (0.0-0.4) X10*3/uL Baso # (Auto) 0.0 (0.0-0.2) X10*3/uL Abs Immat Gran (auto) 0.01 (0.00-0.03) X10*3/uL Absolute Neuts (auto) 2.9 (2.0-8.3) x10*3/uL Absolute Nucleated RBC 0.000 (0.0-0.012) X10*3/uL Nucleated RBC % (auto) 0.0 (0.0-0.2) /100WBC Sodium 141 (135-145) mmol/L Potassium 3.6 (3.3-5.1) mmol/L Chloride 109 H (96-108) mmol/L Carbon Dioxide 25 (22-29) mmol/L Anion Gap 11 L (12-20) BUN 11 (9-16) mg/dL Creatinine 0.64 (0.5-1.4) mg/dL Estim Creat Clear Calc 118.1 Estimated GFR > 60 Random Glucose 90 (60-115) mg/dL Calcium 8.8 (8.4-10.2) mg/dL Magnesium 1.8 (1.6-2.6) mg/dL Total Bilirubin 0.7 (0.0-1.0) mg/dL AST 32 H (5-31) U/L ALT 13 (0-31) U/L Alkaline Phosphatase 73 (39-117) U/L Total Protein 6.8 (6.5-8.0) g/dL Albumin 4.2 (3.5-5.0) g/dL Beta HCG, Quant < 2 mIU/mL Urine Color Yellow Urine Appearance Clear Urine pH 7.0 (5.0-9.0) Ur Specific [place] 1.015 (1.005-1.025) Urine Protein Negative (Neg-Trace) mg/dL Urine Glucose (UA) Negative (Negative) mg/dL Urine Ketones Negative (Negative) mg/dL Urine Blood Small (1+) H (Negative) Urine Nitrite Negative (Negative) Ur Leukocyte Esterase Negative (Negative) Urine RBC 6-10 H (0-2) /HPF Urine WBC 0-5 (0-5) /HPF Ur Squamous Epith Cells 0-2 (0-2) /HPF Urine Bacteria None Seen (None Seen) Hyaline Casts 0-2 (0-2) /LPF Independent Interpretation I performed an independent interpretation of an: CT Scan Interpretation: ct a/p without ureteral stone Radiology Impression Discussion of test interpretation with radiology: I have reviewed the radiologist's reading. Radiologist Impression: Procedure(s): CT abdomen pelvis wo IV con Accession Number(s): [id number] cc: Amira Alford; Physician,Unknown ~ Report Number: [id number]: Total DLP = 777.00 mGy-cm Reason for Exam: flank pain, concern for stone CLINICAL HISTORY: flank pain, concern for stone CT abdomen and pelvis without contrast Comparison: None available Findings: No nephrolithiasis or hydronephrosis. No bladder stone. No consolidation at the lung bases. Unremarkable gallbladder. 2.5 cm fluid attenuation lesion in the right adnexa could be a dominant follicle in the right ovary. The other solid organs are normal. Small hiatal hernia. No bowel wall thickening or dilation. A normal appendix is identified. Normal vasculature. No lymphadenopathy. No ascites. No acute fracture. Impression: No urinary tract stone, obstruction or other acute pathology. This document has been electronically signed by: Meagan Motley MD on 01/08/2025 14:54:58 External Record Review External record reviewed: Inpatient record Prescription Management I considered prescription management with: Pain Medication Social Determinants Patient?s care significantly limited by Social Determinants of Health including: Other Social Determinant of Health Critical Care Time Critical Care Time Critical Care Time: No Discharge Plan Discharge Clinical Impression: Left flank pain, Elevated blood pressure reading Patient Disposition: Home, Self-Care Instructions: Flank Pain (ED) Additional Instructions: Your work up today is reassuring. The CT scan of your abdomen does not demonstrate any acute abnormalities requiring intervention. Your urine does not demonstrate infection. It's possible that you are passing small stones that are not visible on scan. Is also possible that you pass the stone on Thursday and you have residual inflammation. I am sending naproxen, an anti-inflammatory medication, to your pharmacy for you to take as needed for pain. Do not take this with other NSAIDs such as ibuprofen as this can increase risk of GI bleeding. Additionally, your blood pressure was quite elevated in the ED today. You are asymptomatic. I recommend keeping a log of your blood pressures every other day and falling up with your primary care provider as you may need to be placed on medication for your blood pressure. As discussed, please return to the ED if you experience chest pain, vision changes, headache, etc. as this may be related to elevated blood pressure. Prescriptions: New naproxen 500 mg tablet 500 mg PO Q12H PRN (Reason: pain (scale score 1-3)) Qty: 20 0RF No Action oseltamivir [Tamiflu] 75 mg capsule 75 mg PO BID 5 Days Qty: 10 0RF sumatriptan succinate [Imitrex] 50 mg tablet 50 mg PO Q2H PRN (Reason: migraine headache) Qty: 10 0RF Rx Instructions: do not exceed 2 doses per 24 hrs hczqeyecyw-fbnjgrysdgsig-qhzf [Fioricet] 50-300-40 mg capsule 1 cap PO Q6H PRN (Reason: headache) Qty: 20 0RF benzonatate 200 mg capsule 200 mg PO TID PRN (Reason: cough) Qty: 30 0RF ibuprofen 600 mg tablet 600 mg PO Q6H PRN (Reason: fever or pain) Qty: 30 0RF iaedurpder-lewourioeyzsl-qjsa [Fioricet] 50-300-40 mg capsule 1 cap PO Q8H PRN (Reason: pain (scale score 4-6)) Qty: 10 0RF ondansetron 4 mg tablet,disintegrating 4 mg PO DAILY PRN (Reason: nausea and vomiting) 5 Days Qty: 10 0RF Referrals: Physician,Unknown J [Primary Care Provider, Medical] Stand Alone Forms: Work/School Release Interventions: ED Discharge Assessment Last Done: 01/08/25 17:28 Discharge Date/Time: 01/08/25 17:29 Print Language: Nicaraguan
[2025-01-08 12:04] LABS: MANUAL DIFF FLAG NO
[2025-01-08 12:06] LABS: Hematocrit 39.0 % (37.0-47.0); Hemoglobin 13.3 g/dl (12.0-16.0); Imm Gran Abs Auto 0.01 X10*3/uL (0.00-0.03); Imm Gran Pct Auto 0.2 % (0.0-0.4); Lymphocytes Absolute Auto 2.4 X10*3/uL (1.2-4.9); Mean Corpuscular HGB Conc 34.1 g/dl (31.0-35.0); Mean Corpuscular Hemoglobin 28.5 pg (27.0-33.0); Mean Corpuscular Volume 83.5 fL (80.0-98.0); NRBC Abs Auto 0.000 X10*3/uL (0.0-0.012); NRBC Pct Auto 0.0 /100WBC (0.0-0.2); Platelet Count 319 X10*3/uL (160-400); Red Blood Count 4.67 X10*6/uL (4.20-5.50); White Blood Count 6.1 X10*3/uL (4.8-10.8)
--- OUTSIDE RECORDS SUMMARY | 2025-01-08 12:24 | XMS_ITS | Clinical Summary ---
Author Organization Patient Business Ser [facility] Address [address] [place] [address] Care Team Providers Care Medical Educator Name Role Phone Sachin Newell MD Primary Care Provider [phone] Allergies Active Allergy Reactions Criticality Noted Date Comments Bee Venom Protein (Honey Bee) Wheezing High 12/09/2016 Sulfamethoxazole-Trimetho prim Anaphylaxis High 06/16/2014 Other Reaction(s): Rash/Dermatitis Medications albuterol HFA (Ventolin HFA) 90 mcg/actuation inhalerIndicati ons:Acute bilateral low back pain with bilateral sciatica,Radicu lopathy, lumbar region Inhale 2 puffs by mouth every 4 (four) hours if needed for wheezing. 6.7 g 5 Active EPINEPHrine (EPIPEN) 0.3 mg/0.3 mL injection Inject 0.3 mL (0.3 mg total) into the thigh if needed for anaphylaxis. 1 each 5 Active naproxen (NAPROSYN) 500 mg tablet Take 1 tablet (500 mg total) by mouth 2 (two) times a day with meals. 60 tablet 5 Active ofloxacin (FLOXIN) 0.3 % otic solution Administer 4 drops into each ear 2 (two) times a day. 5 mL 5 Active cyclobenzaprine (FLEXERIL) 5 mg tabletIndicatio ns:muscle spasm Take 1 tablet (5 mg total) by mouth 2 (two) times a day if needed for muscle spasms. 30 tablet 5 12/31/19 25 Active Problems Problem Noted Date Diagnosed Date Radiculopathy, lumbar region 05/13/2024 Assessment & Plan (05/13/2024 3:04 PM EST): Patient has had chronic low back pain for about 2 years, will get flareups of pain in both legs at times, will either do prednisone or Medrol Dosepak and symptoms seem to improve temporarily. Her most recent flareup about a month and a half ago she started experiencing left low back pain that radiates into the left leg, she is concerned because she has severe numbness and tingling in the buttock, posterior thigh and foot, a tight stabbing pain in the left posterior knee down the leg. She states her legs never had numbness tingling with prior flareups. She also notes numbness in the saddle region. She tried a Medrol Dosepak about a month and a half ago, minimal improvement. She is on ibuprofen 600 mg at night, sometimes takes in the morning, helps somewhat. She rates her back pain 6/10, left leg pain 7-8/10. She states sitting in the office right now her left buttock is completely numb. She was supposed to start physical therapy last month, however her 13-year-old son has cystic fibrosis and ended up in the hospital at [facility]. She is scheduled to start at the end of this month. Patient had lumbar spine x-rays 05/03/2024 that shows disc space narrowing L5-S1, we reviewed images on the computer together. Lumbar spine MRI pending. Ms. Nowak has left low back, left leg pain, numbness tingling through the posterior leg and saddle region. We will check and see if her MRI has been approved through insurance, she does not yet have a date scheduled. She will continue with the plan to start physical therapy end of the month. We talked about trying acupuncture, names provided. All questions answered. We can follow-up after MRI is complete to go over results. Asthma 03/03/2024 Nausea 09/10/2023 Dysuria 09/10/2023 COVID-19 virus infection 07/04/2020 Anxiety 04/07/2018 Depression 04/07/2018 Thyroid cyst 04/07/2018 Abnormal MRI of head 10/12/2017 Migraine 10/17/2014 Assessment & Plan (06/01/2024 3:36 PM EST): Patient with previous history of chronic migraines. She is having worsening of her usual migraine headaches. She intermittently gets dizzy, which is similar with previous flares. She has tried numerous agents in the past including Imitrex, Topamax, Effexor for prevention, Fioricet. At this point, we will trial initiation of propranolol. Discussed it may take 3 months to prove effective. Medication side effects reviewed with patient. Will refer the patient to neurology for assistance with management. Will check some basic labs including vitamin D. Follow-up in office in 3 to 4 months for reassessment. She is asked to call questions or concerns. She voiced understanding and agree with the above plan. Orders: Complete blood count; Future Comprehensive metabolic panel; Future Vitamin D 25 hydroxy; Future Homocysteine, total; Future Thyroid stimulating hormone; Future Ambulatory referral to Neurology; Future Encounters Date Type Department Care Team Description 10/31/2024 4:00 PM EDT Office Visit Adult Medicine [address] [id number] Weston Machado, GRAPHICS INTERN Acute bilateral low back pain with bilateral sciatica (Primary Dx); Acute otitis externa of left ear, unspecified type from Last 3 Months Immunizations Name Administration Dates Next Due DTP 10/05/1991, 9,07/10/1987,05/01,1986 HPV 9-valent (Gardisil) 9yo to less than 46yo 04/02/2023,01/29/2023 Hepatitis B Pediatric (Enger ix B; Recombivax HB) to less than 20 yo 09/07/1998,02/26/1998,01/25/1998 HiB PRP-T conjugate (Acthib, Hiberix) 6wks and older 12/21/1989 Hib (HbOC) 05/20/1988 Influenza Quadravalent, MDCK , 0.5ml, preservative free (Flucelvax) 6mo and older 01/13/2020,04/21/2019 MMR, measles mumps and rubel la Live (Priorix; M-M-R II) 12mo and older 01/25/1998,02/05/1988 OPV 10/05/1991, 9,07/10/1987,05/01,1986 PPD Test 05/04/2019,04/21/2019 Pneumococcal polysaccharide 23 valent (Pneumovax 23) 2yo and older 04/07/2018 Td Tetanus diptheria, preser vative free (Tenivac) 7yo and older 05/18/1998 Tdap Tetanus diptheria acell ular pertussis (Boostrix; Adacel) 7yo and older 12/25/2022,10/17/2012 Surgical History Surgery Date Site/Laterality Comments OTHER SURGICAL HISTORY PRTL THYROID LOBECTOMY UNI W/WO ISTHMUSECTOMY TONSILLECTOMY SECTION Medical History Medical History Date Comments Hypothyroid Asthma Migraines Abnormal MRI of head 10/12/2017 Anxiety and depression Family History Medical History Relation Name Comments Stroke Father Throat cancer Father Alzheimer's disease Maternal Grandmother Other: CVA Maternal Grandmother Hypertension Mother asthma Breast cancer Paternal Grandmother unsure of age of onset Asthma Sister 1 Other: cystic fibrosis Son Cancer of Small Bowel Neg Hx Colon cancer Neg Hx Kidney cancer Neg Hx Ovarian cancer Neg Hx Pancreatic cancer Neg Hx Uterine cancer Neg Hx Relation Name Status Comments Brother Alive Father Alive Maternal Grandfather Maternal Grandmother Mother Alive Paternal Grandfather Paternal Grandmother Sister 1 Alive Sister 2 Alive Son Social History Tobacco Use Types Packs/Day Years Used Date Smoking Tobacco: Never Smokeless Tobacco: Never Tobacco Cessation:Counseling Given: Not Answered Alcohol Use Standard Drinks/Week Comments Yes 0 (1 standard drink = 0.6 oz pur e alcohol) Comments No Sex and Gender Information Value Date Recorded Sex Assigned at Not on file Legal Sex Female 12:35 PM EST Gender Identity Not on file Sexual Orientation Not on file Obstetrics History Last Filed Vital Signs Vital Sign Reading Time Taken Comments Blood Pressure 127/85 10/31/2024 3:59 PM EDT Pulse 67 10/31/2024 3:59 PM EDT Temperature 36.6 C (97.8 F) 10/31/2024 3:59 PM EDT Respiratory Rate 16 10/31/2024 3:59 PM EDT Oxygen Saturation 98% 10/31/2024 3:59 PM EDT Inhaled Oxygen Concentration - - Weight 83.9 kg (185 lb) 10/31/2024 3:59 PM EDT Height 162.6 cm (5' 4 ) 10/31/2024 3:59 PM EDT Body Mass Index 31.76 10/31/2024 3:59 PM EDT Plan of Treatment Upcoming Encounters Date Type Department Care Team (Late st Contact Info) Description 03/06/2025 4:00 PM EST Office Visit Adult Medicine [facility] [address] [place] [address] Sachin Newell MD [address] [place] [address] Health Maintenance Due Date Last Done Comments Pneumococcal Vaccine: Pediatrics (0 to 5 Years) and At-Risk Patients (6 to 49 Years) (2 of 2 - PCV) 04/07/2019 04/07/2018 Social Influencers of Health Screening 07/04/2020 HPV Vaccines (3 - 3-dose SCDM series) 07/31/2023 04/02/2023, 01/29/2023 Depression Screening 04/27/2024 08/11/2023 COVID-19 Vaccine ( - season) 2024 10/24/2020, 10/03/2020 Influenza Vaccine (#1) 2024 01/13/2020, 2018 Cholesterol Screening (Lipid Panel) 03/04/2026 03/04/2021 Cervical Cancer Screening: HPV 07/22/2027 07/21/2022 DTaP,Tdap,and Td Vaccines (9 - Td or Tdap) 12/25/2032 12/25/2022, 10/17/2012, 05/18/1998, Additional history exists HIB Vaccines Completed 12/21/1989, 05/20/1988 IPV Vaccines Completed 10/05/1991, 11/25, 07/10/1987, Additional history exists MMR Vaccines Completed 01/25/1998, 02/05/1988 Hepatitis B Vaccines Completed 09/07/1998, 02/26/1998, 01/25/1998 HIV Screening Completed 07/11/2022 Hepatitis C Screening Completed 07/11/2022 Hepatitis A Vaccines Aged Out No long er eligible based on patient's age to complete this topic Meningococcal ACWY Vaccine Aged Out N o longer eligible based on patient's age to complete this topic Meningococcal B Vaccine Aged Out No l onger eligible based on patient's age to complete this topic RSV Immunization Patients Under 20 months Aged Out No longer eligible based on patient's age to complete this topic Varicella Vaccines Aged Out No longer eligible based on patient's age to complete this topic Goals Goal Patient Goal Type Associated Problems Recent Progress Patient-Stated? Author STG's 6 visits General Yes Davy Alexander PT Note: Pt is Independent and compliant with initial HEP. Pt will perform correct technique for sup<->sit transfers w/ min VC's in 5/5 trials. Pt will report waking no more than 2x/night d/t LBP. Pt will report LBP that does not extend beyond L buttock during household activities. LTG's 12 visits General Yes Davy Alexander PT Note: Pt will be Independent and compliant with final HEP. Pt will I demonstrate proper technique for sup<->sit transfers in 5/5 trials. Pt will report no longer waking at night d/t LBP. Pt will report LBP that does not extend during household activities. Procedures Procedure Name Priority Date/Time Associated Diagnosis Comments DEPRESSION SCREENING Routine 08/11/2023 HPV Routine 07/21/2022 HEPATITIS C SCREENING Routine 07/11/2022 HIV SCREENING Routine 07/11/2022 LIPID PANEL Routine 03/04/2021 from Last 3 Months or Most Recently Relevant to Health Maintenance Results * Depression Screening (08/11/2023) Depression Screening abstracted Historical Provider HEALTH MAINTENANCE Final Result * Cervical Cancer Screening: HPV (07/21/2022) Cervical Cancer Screening: HPV abstracted, negative Historical Provider HEALTH MAINTENANCE Final Result * HIV Screening (07/11/2022) HIV Screening abstracted Historical Provider HEALTH MAINTENANCE Final Result * Hepatitis C Screening (07/11/2022) Hepatitis C Screening abstracted Historical Provider HEALTH MAINTENANCE Final Result * Lipid panel (03/04/2021) LDL/HDL Ratio 3 0 - 4 Triglycerides 92 0 - 150 mg/dL Cholesterol 158 0 - 200 mg/dL HDL 49 >=40 mg/dL LDL Cholesterol 91 0 - 100 mg/dL Blood Venous blood specimen / Unknown Historical Provider LAB BLOOD ORDERABLES Cynthia l Result from Last 3 Months or Most Recently Relevant to Health Maintenance Insurance [facility] [facility] Care Teams Medical Educator Relationship Specialty Start Date End Date Sachin Newell MD [address] [place] [address] PCP - General Internal Medicine 01/10/21
--- OUTSIDE RECORDS SUMMARY | 2025-01-08 12:24 | XMS_ITS | Encounter Summary ---
Author Organization [facility] Address [address] [place] [id number] Phone Care Team Providers Care Therapeutic Dietitian Name Role Phone Mini Hagan MD Primary Care Provider [phone] Encounter Details Date Type Department Care Team (Late st Contact Info) Description 12/11/2016 Conversion Encounter [facility] [place] [address] [place], [place] [id number] Social History Tobacco Use Types Packs/Day Years Used Date Smoking Tobacco: Never Assessed Comments Unknown Sex and Gender Information Value Date Recorded Sex Assigned at Not on file Legal Sex Female 4:38 PM EDT Gender Identity Not on file Sexual Orientation Not on file documented as of this encounter Plan of Treatment Not on file documented as of this encounter Visit Diagnoses Not on filedocumented in this encounter Care Teams Therapeutic Dietitian Relationship Specialty Start Date End Date Mini Hagan MD [address] [place] [address] PCP - General 12/05/16 documented as of this encounter
--- OUTSIDE RECORDS SUMMARY | 2025-01-08 12:24 | XMS_ITS | Clinical Summary ---
Author Organization [facility] Address [address] [place] [id number] Phone Care Team Providers Care Test Grader Name Role Phone Mini Hagan MD Primary Care Provider [phone] Immunizations Immunization Administration Dates Next Due DTP 10/05/1991, 9,07/10/1987,1987,1986 Hep B, ped/adol 09/07/1998,02/26/1998,01/25/1998 Hib (HbOC) 05/20/1988 Hib (PRP-T) 12/21/1989 MMR 01/25/1998,02/05/1988 OPV 10/05/1991, 9,07/10/1987,1987,1986 Td (adult) (Teniva), 5 Lf t etanus toxoid, PF, adsorbed 05/18/1998 Social History Tobacco Use Types Packs/Day Years Used Date Smoking Tobacco: Never Assessed Comments Unknown Sex and Gender Information Value Date Recorded Sex Assigned at Not on file Legal Sex Female 4:38 PM EDT Gender Identity Not on file Sexual Orientation Not on file Plan of Treatment Health Maintenance Due Date Last Done Comments Varicella Vaccines (1 of 2 - 13+ 2-dose series) 10/26/1999 HPV Vaccines (1 - 3-dose SCDM series) 2013 DTaP,Tdap,and Td Vaccines (7 - Td or Tdap) 10/17/2022 10/17/2012, 05/18/1998, 10/05/1991, Additional history exists Influenza Vaccines (#1) 2024 COVID-19 Vaccine ( season) 2024 HIB Vaccines Completed 12/21/1989, 05/20/1988 IPV Vaccines Completed 10/05/1991, 11/25, 07/10/1987, Additional history exists MMR Vaccines Completed 01/25/1998, 02/05/1988 Hepatitis B Vaccines Completed 09/07/1998, 02/26/1998, 01/25/1998 Hepatitis A Vaccines Aged Out No long er eligible based on patient's age to complete this topic Men B Vaccine Aged Out No longer elig ible based on patient's age to complete this topic Meningococcal Vaccine Aged Out No yohan eduardo eligible based on patient's age to complete this topic Pneumococcal Vaccine Aged Out No long er eligible based on patient's age to complete this topic Care Teams Test Grader Relationship Specialty Start Date End Date Mini Hagan MD [address] [place] [address] [place] [address] PCP - General 12/05/16
--- OUTSIDE RECORDS SUMMARY | 2025-01-08 12:24 | XMS_ITS ---
Author Name [facility] Organization Unknown Care Team Organization Name Specialty Phone Email Start Date End Da gurmeet [facility] 09/01/2022 12/14/2023 [facility] 03/04/2022
[2025-01-08 12:26] LABS: Alanine Aminotransferase 13 U/L (0-31); Albumin Level 4.2 g/dL (3.5-5.0); Alkaline Phosphatase 73 U/L (39-117); Anion Gap 11 (12-20); Aspartate Amino Transferase 32 U/L (5-31); Blood Urea Nitrogen 11 mg/dL (9-16); Calcium 8.8 mg/dL (8.4-10.2); Carbon Dioxide 25 mmol/L (22-29); Chloride 109 mmol/L (96-108); Creatinine Clr Calc Pharmacy 118.1; Estimated Glomerular Filt Rate > 60; Magnesium 1.8 mg/dL (1.6-2.6); Potassium 3.6 mmol/L (3.3-5.1); Sodium 141 mmol/L (135-145); Total Protein 6.8 g/dL (6.5-8.0)
--- NOTE | 2025-01-08 12:55 | PC.NURSE ---
Patient is a 39 yo female who presents with left flank pain which radiating across abdomen for the past week. States she works at an [employer] and urine was tested -results were negative. Since then she states has passed small blood clots and ? a small stone. Alert and oriented. Lungs clear bilat. Respirations even and non-labored. Abdomen soft with positive bowel sounds. c/o left flank pain. No CVA tenderness noted. Positive pedal pulses with no edema.
[2025-01-08 16:02] LABS: Appearance Urine Clear; Glucose Urine UA Negative (Negative); PH 7.0 (5.0-9.0); Specific Gravity - Urine 1.015 (1.005-1.025); UMIC TRIGGER UACC YES
[2025-01-08 16:23] VITALS: BP 171/103; PULSE 62; RESP 16; TEMP 36.7; O2SAT 98
[2025-01-08 17:28] VITALS: BP 171/103; PULSE 62; RESP 16; TEMP 36.7; O2SAT 98
== END 2025-01-08 17:29 | disposition home or self-care (01) ==
PROVIDERS: Physician Assistant Medical; Emergency Provider Emergency Medicine
DX: R10.2 Pelvic and perineal pain (principal); R03.0 Elevated blood-pressure reading, without diagnosis of hypertension; R30.0 Dysuria; R11.2 Nausea with vomiting, unspecified; Z79.899 Other long term (current) drug therapy
CPT/HCPCS: 36415; 74176; 80053; 81001; 81003; 83735; 84702; 85025; 96361; 96374; 96375; 99285; J1885; J2405

== ENCOUNTER → 2025-01-08 11:35 | Outpatient (BNV) | payer OTHER, SELFPAY | PROVIDERS: Emergency Provider Emergency Medicine; Visit Provider Radiology Diagnostic Radiology | DX: R10.9 Unspecified abdominal pain (principal) | CPT/HCPCS: 74176 ==